=== PATIENT | female | born 2000 | race Caucasian/White ===

== ENCOUNTER → 2020-08-05 14:45 | Outpatient (CLI) | payer OTHER, SELFPAY ==
--- NOTE | ~2020-08-05 | US_ITS ---
US transvaginal DATE: 08/05/2020 15:15 INDICATION: Pelvic pain TECHNIQUE: Real-time imaging via transvaginal approach COMPARISON: None FINDINGS: The uterus measures 7.1 cm height, 3.6 cm AP and 4.6 cm transverse dimension. Central endom etrial echo complex measures 6 mm AP dimension. Right ovary 2.1 x 1.6 x 2 cm with vascular flow. Left ovary 1.5 x 1.4 x 1.8 cm with vascular flow. No pelvic mass lesion or abnormal pelvic fluid collection is evident. IMPRESSION: Negative Reviewed, dictated and finalized at [facility]. Reviewed, dictated and finalized at [facility]. IMPRESSION: Negative
== END ==
DX: R10.12 Left upper quadrant pain (principal)
CPT/HCPCS: 76830